=== PATIENT | female | born 1940 | race Caucasian/White ===

== ENCOUNTER 2018-04-28 17:33 | Inpatient (IN) | payer MEDICARE, OTHER ==
[~2018-04-28] VITALS: Ht 167.6 cm; Wt 51.3 kg
--- NOTE | ~2018-04-28 | MORECARE ---
CASE MANAGEMENT DISCHARGE SUMMARY PATIENT: DANAY WIGGINS UNIT: [id number] ADM DATE: 04/28/18 AGE: 77 : 39 SEX: F ROOM/BED: D.2215 AUTHOR: RENDOC PHYSICIAN: REFERRING PHYSICIAN: TAMELA TAVARES MD DATE OF SERVICE: 05/02/18 Discharge Plan Patient Name: DANAY WIGGINS Facility: [facility]:[place] : 1940 Planned Disposition: Inpatient Rehab Anticipated Discharge Date: Discharge Date: Expected LOS: Initial Reviewer: [email or web address] Initial Review Date: 04/28/2018 Generated: 05/02/18 4:12 pm Comments DCP- Discharge Planning Updated by [email or web address]: Vonnie Gerardo on 05/02/18 2:[address] Patient Name: DANAY WIGGINS Admission Status: Elective Accout number: [id number] Admission Date: 04-28-2018 : 1940 Admission Diagnosis: Attending: TAMELA TAVARES Current LOS: 4 Anticipated DC Date: Planned Disposition: Inpatient Rehab Primary Insurance: MEDICARE A & B Discharge Planning Comments: CM met with patient and son to assess discharge planning needs. Patient currently lives on the same property as her son but lives independently but needs the help for bathing and meds at times. Hardy (son) or Ami(daughter in law) She has a nebulizer and home o2 at home. I have sent the referral for [facility] via [facility]. Patient would like to go to inpatient rehab when discharged. CM will continue to follow and assist with DC planning as needed Salesforce Consultant: Vonnie Gerardo DCP- Discharge Planning Updated by [email or web address]: Vonnie Gerardo on 05/01/18 10:[address] referral for trilogy called to [place] with [facility]. DCPIA - Discharge Planning Initial Assessment Updated by [email or web address]: Vonnie Gerardo on 05/02/18 3:06 pm * Is the patient Alert and Oriented? Yes * How many steps to enter\exit or inside your home? * PCP Slovenian * [facility]acy [facility] in [place] * Preadmission Environment Home with Family * ADLs Partial Dependent * Partial ADLs (Assistance needed) Ambulation Bathing * Equipment Nebulizer Oxygen * List name and contact numbers for known caregivers / representatives who currently or will assist patient after discharge: Hardy (son) [phone] Ami (daughter in law) [phone] * Verbal permission to speak to the caregivers and representatives has been obtained from the patient. Yes * Community resources currently utilized None * Additional services required to return to the preadmission environment? No * Can the patient safely return to the preadmission environment? Yes * Has this patient been hospitalized within the prior 30 days at any hospital? No Last DP export: 05/02/18 2:04 Patient Name: DANAY WIGGINS Page [id number] at 1512 All edits/amendments must be made on the electronic document DICTATION DATE: 05/02/181511 FINANCIAL RETIREMENT PLAN SPECIALIST: KELLY 05/02/181511 RPT#: [id number] DC DATE: STATUS: ADM IN [facility] [address] [place] [address] END OF REPORT
--- NOTE | ~2018-04-28 | MORECARE ---
CASE MANAGEMENT DISCHARGE SUMMARY PATIENT: DANAY WIGGINS UNIT: [id number] ADM DATE: 04/28/18 AGE: 77 : 39 SEX: F ROOM/BED: D.2215 AUTHOR: JACINTO MCCLURE PHYSICIAN: REFERRING PHYSICIAN: TAMELA TAVARES MD DATE OF SERVICE: 05/02/18 Discharge Plan Patient Name: DANAY WIGGINS Facility: [facility]:[place] : 1940 Planned Disposition: Inpatient Rehab Anticipated Discharge Date: Discharge Date: Expected LOS: Initial Reviewer: [email or web address] Initial Review Date: 04/28/2018 Generated: 05/02/18 4:04 pm Comments DCP- Discharge Planning Updated by [email or web address]: Vonnie Gerardo on 05/01/18 10:[address] referral for trilogy called to [place] with [facility]. Patient Name: DANAY WIGGINS Page [id number] at 1504 All edits/amendments must be made on the electronic document DICTATION DATE: 05/02/18 1504 IMAGER: KELLY 05/02/18 1504 RPT#: [id number] DC DATE: STATUS: ADM IN [facility] [address] [place] [address] END OF REPORT
--- NOTE | ~2018-04-28 | MORECARE ---
CASE MANAGEMENT DISCHARGE SUMMARY PATIENT: DANAY WIGGINS UNIT: [id number] ADM DATE: 04/28/18 AGE: 77 : 39 SEX: F ROOM/BED: D.2215 AUTHOR: JACINTO MCCLURE PHYSICIAN: REFERRING PHYSICIAN: TAMELA TAVARES MD DATE OF SERVICE: 05/08/18 Discharge Plan Patient Name: DANAY WIGGINS Facility: [facility]:[place] : 1940 Planned Disposition: Inpatient Rehab Anticipated Discharge Date: Discharge Date: 05/04/2018 Expected LOS: 0 Initial Reviewer: [email or web address] Initial Review Date: 04/28/2018 Generated: 05/08/18 9:08 am Comments DCP- Discharge Planning Updated by [email or web address]: Vonnie Gerardo on 05/04/18 11:[address] PATIENT TO BE DISCHARGED TO INPATIENT TODAY, IMM EXPLAINED AND GIVEN. CM WILL CONTINUE TO FOLLOW AND ASSIST WITH DC PLANNING NEEDED DCP- Discharge Planning Updated by [email or web address]: Vonnie Gerardo on 05/03/18 11:[address] [facility] CALLED TO LET ME KNOW THAT THE TRILOLGY IS APPROVED 100%. I EXPLAINED TO HER THAT SHE WILL BE DISCHARGING TO INPATIENT REHAB BEFORE GOING HOME. THEY STATED THAT THEY WILL FOLLOW HER AND WILL NEED A 48 HOUR NOTICE BEFORE DC SO SHE CAN GET THE PATIENT SET UP HERE IN THE HOSPITAL BEFORE DISCHARGE. KATHIE ARMSTRONG WITH [facility] NUMBER IS [phone] DCP- Discharge Planning Updated by [email or web address]: Vonnie Gerardo on 05/02/18 2:[address] Patient Name: DANAY WIGGINS Admission Status: Elective Accout number: [id number] Admission Date: 04-28-2018 : 1940 Admission Diagnosis: Attending: TAMELA TAVARES Current LOS: 4 Anticipated DC Date: Planned Disposition: Inpatient Rehab Primary Insurance: MEDICARE A & B Discharge Planning Comments: CM met with patient and son to assess discharge planning needs. Patient currently lives on the same property as her son but lives independently but needs the help for bathing and meds at times. Hardy (son) or Ami(daughter in law) She has a nebulizer and home o2 at home. I have sent the referral for [facility] via [facility]. Patient would like to go to inpatient rehab when discharged. CM will continue to follow and assist with DC planning as needed Paperback Machine Operator: Vonnie Gerardo DCP- Discharge Planning Updated by [email or web address]: Vonnie Gerardo on 05/01/18 10:[address] referral for trilogy called to [place] with [facility]. DCPIA - Discharge Planning Initial Assessment Updated by [email or web address]: Vonnie Gerardo on 05/02/18 3:06 pm * Is the patient Alert and Oriented? Yes * How many steps to enter\exit or inside your home? * PCP Bolivian * Pharmacy [facility] in [place] * Preadmission Environment Home with Family * ADLs Partial Dependent * Partial ADLs (Assistance needed) Ambulation Bathing * Equipment Nebulizer Oxygen * List name and contact numbers for known caregivers / representatives who currently or will assist patient after discharge: Hardy (son) [phone] Ami (daughter in law) [phone] * Verbal permission to speak to the caregivers and representatives has been obtained from the patient. Yes * Community resources currently utilized None * Additional services required to return to the preadmission environment? No * Can the patient safely return to the preadmission environment? Yes * Has this patient been hospitalized within the prior 30 days at any hospital? No Coverage Notice Reviewer: [email or web address] [place] Notice Issued Date-Time: 05/04/2018 12:08 Notice Type: IM Discharge Notice Notice Delivered To: Patient Relationship to Patient: Self Cattle Producers Name: Delivery Method: HAND - Hand Delivered Christin Days: Prior Verbal Notification: Recipient Understood Notice: Yes Recipient Signature: Yes Med Rec Note Co-signed by Attending: Coverage Notice Comment: Last DP export: 05/04/18 11:07 Patient Name: DANAY WIGGINS Page [id number] at 0808 All edits/amendments must be made on the electronic document DICTATION DATE: 05/08/18807 DRYWALL APPLICATOR: KELLY 05/08/18807 RPT#: [id number] DC DATE:05/04/18 STATUS: DIS IN [facility] [address] [place] [address] END OF REPORT
--- NOTE | ~2018-04-28 | MORECARE ---
CASE MANAGEMENT DISCHARGE SUMMARY PATIENT: DANAY WIGGINS UNIT: [id number] ADM DATE: 04/28/18 AGE: 77 : 39 SEX: F ROOM/BED: D.2215 AUTHOR: JACINTO MCCLURE PHYSICIAN: REFERRING PHYSICIAN: TAMELA TAVARES MD DATE OF SERVICE: 05/04/18 Discharge Plan Patient Name: DANAY WIGGINS Facility: [facility]:[place] : 1940 Planned Disposition: Inpatient Rehab Anticipated Discharge Date: Discharge Date: Expected LOS: Initial Reviewer: [email or web address] Initial Review Date: 04/28/2018 Generated: 05/04/18 1:07 pm Comments DCP- Discharge Planning Updated by [email or web address]: Vonnie Gerardo on 05/04/18 11:[address] PATIENT TO BE DISCHARGED TO INPATIENT TODAY, IMM EXPLAINED AND GIVEN. CM WILL CONTINUE TO FOLLOW AND ASSIST WITH DC PLANNING NEEDED DCP- Discharge Planning Updated by [email or web address]: Vonnei Gerardo on 05/03/18 11:[address] [facility] CALLED TO LET ME KNOW THAT THE TRILOLGY IS APPROVED 100%. I EXPLAINED TO HER THAT SHE WILL BE DISCHARGING TO INPATIENT REHAB BEFORE GOING HOME. THEY STATED THAT THEY WILL FOLLOW HER AND WILL NEED A 48 HOUR NOTICE BEFORE DC SO SHE CAN GET THE PATIENT SET UP HERE IN THE HOSPITAL BEFORE DISCHARGE. KATHIE ARMSTRONG WITH [facility] NUMBER IS [phone] DCP- Discharge Planning Updated by [email or web address]: Vonnie Gerardo on 05/02/18 2:[address] Patient Name: DANAY WIGGINS Admission Status: Elective Accout number: [id number] Admission Date: 04-28-2018 : 1940 Admission Diagnosis: Attending: TAMELA TAVARES Current LOS: 4 Anticipated DC Date: Planned Disposition: Inpatient Rehab Primary Insurance: MEDICARE A & B Discharge Planning Comments: CM met with patient and son to assess discharge planning needs. Patient currently lives on the same property as her son but lives independently but needs the help for bathing and meds at times. Hardy (son) or Ami(daughter in law) She has a nebulizer and home o2 at home. I have sent the referral for [facility] via [facility]. Patient would like to go to inpatient rehab when discharged. CM will continue to follow and assist with DC planning as needed Parts Technician: Vonnie Gerardo DCP- Discharge Planning Updated by [email or web address]: Vonnie Gerardo on 05/01/18 10:[address] referral for trilogy called to [place] with [facility]. DCPIA - Discharge Planning Initial Assessment Updated by [email or web address]: Vonnie Gerardo on 05/02/18 3:06 pm * Is the patient Alert and Oriented? Yes * How many steps to enter\exit or inside your home? * PCP Frisian * [facility] in [place] * Preadmission Environment Home with Family * ADLs Partial Dependent * Partial ADLs (Assistance needed) Ambulation Bathing * Equipment Nebulizer Oxygen * List name and contact numbers for known caregivers / representatives who currently or will assist patient after discharge: Hardy (son) [phone] Ami (daughter in law) [phone] * Verbal permission to speak to the caregivers and representatives has been obtained from the patient. Yes * Community resources currently utilized None * Additional services required to return to the preadmission environment? No * Can the patient safely return to the preadmission environment? Yes * Has this patient been hospitalized within the prior 30 days at any hospital? No Last DP export: 05/04/18 11:01 Patient Name: DANAY WIGGINS Page [phone] at 1208 All edits/amendments must be made on the electronic document DICTATION DATE: 05/04/181206 CONTRACT PROJECT MANAGER: KELLY 05/04/181206 RPT#: [id number] DC DATE: STATUS: ADM IN [facility] [address] [place] [address] END OF REPORT
--- NOTE | ~2018-04-28 | MORECARE ---
CASE MANAGEMENT DISCHARGE SUMMARY PATIENT: DANAY WIGGINS UNIT: [id number] ADM DATE: 04/28/18 AGE: 77 : 39 SEX: F ROOM/BED: D.3175 AUTHOR: JACINTO MCCLURE PHYSICIAN: REFERRING PHYSICIAN: TAMELA TAVARES MD DATE OF SERVICE: 05/04/18 Discharge Plan Patient Name: DANAY WIGGINS Facility: [facility]:[place] : 1940 Planned Disposition: Inpatient Rehab Anticipated Discharge Date: Discharge Date: Expected LOS: Initial Reviewer: [email or web address] Initial Review Date: 04/28/2018 Generated: 05/04/18 1:00 pm Comments DCP- Discharge Planning Updated by [email or web address]: Vonnie Gerardo on 05/03/18 11:[address] [facility] CALLED TO LET ME KNOW THAT THE TRILOLGY IS APPROVED 100%. I EXPLAINED TO HER THAT SHE WILL BE DISCHARGING TO INPATIENT REHAB BEFORE GOING HOME. THEY STATED THAT THEY WILL FOLLOW HER AND WILL NEED A 48 HOUR NOTICE BEFORE DC SO SHE CAN GET THE PATIENT SET UP HERE IN THE HOSPITAL BEFORE DISCHARGE. KYLIE ARMSTRONG WITH [facility] NUMBER IS [phone] DCP- Discharge Planning Updated by [email or web address]: Vonnie Gerardo on 05/02/18 2:[address] Patient Name: DANAY WIGGINS Admission Status: Elective Accout number: [id number] Admission Date: 04-28-2018 : 1940 Admission Diagnosis: Attending: TAMELA TAVARES Current LOS: 4 Anticipated DC Date: Planned Disposition: Inpatient Rehab Primary Insurance: MEDICARE A & B Discharge Planning Comments: CM met with patient and son to assess discharge planning needs. Patient currently lives on the same property as her son but lives independently but needs the help for bathing and meds at times. Hardy (son) or Ami(daughter in law) She has a nebulizer and home o2 at home. I have sent the referral for [facility] via [facility]. Patient would like to go to inpatient rehab when discharged. CM will continue to follow and assist with DC planning as needed Labor Relations Supervisor: Vonnie Gerardo DCP- Discharge Planning Updated by [email or web address]: Vonnie Gerardo on 05/01/18 10:[address] referral for trilogy called to [place] with [facility] DCPIA - Discharge Planning Initial Assessment Updated by [email or web address]: Vonnie Gerardo on 05/02/18 3:06 pm * Is the patient Alert and Oriented? Yes * How many steps to enter\exit or inside your home? * PCP Georgian * [facility] in [place] * Preadmission Environment Home with Family * ADLs Partial Dependent * Partial ADLs (Assistance needed) Ambulation Bathing * Equipment Nebulizer Oxygen * List name and contact numbers for known caregivers / representatives who currently or will assist patient after discharge: Hardy (son) [phone] Ami (daughter in law) [phone] * Verbal permission to speak to the caregivers and representatives has been obtained from the patient. Yes * Community resources currently utilized None * Additional services required to return to the preadmission environment? No * Can the patient safely return to the preadmission environment? Yes * Has this patient been hospitalized within the prior 30 days at any hospital? No Last DP export: 05/03/18 11:47 Patient Name: DANAY WIGGINS Page 11743 at 1201 All edits/amendments must be made on the electronic document DICTATION DATE: 05/04/181199 TOOL MARKER: KELLY 05/04/18 1200 RPT#: [id number] DC DATE: STATUS: ADM IN [facility] [address] [place] [address] END OF REPORT
--- NOTE | ~2018-04-28 | HP ---
PATIENT: DANAY WIGGINS MEDICAL RECORD: [id number] ACCOUNT: [id number] LOCATION:D.[facility] [address] : [birth year] ADMISSION DATE: 04/28/18 PCP: TAMELA TAVARES MD HISTORY AND PHYSICAL EXAMINATION REASON FOR ADMISSION: Confusion, shortness of breath, and failure to thrive. HISTORY OF PRESENT ILLNESS: The patient is a 77-year-old female with long-standing history of O2 dependent COPD. The patient has been cared for by her son for the last several years. She has been progressively declining chronic weight loss, poor appetite, and increasing shortness of breath. She considered hospice last year, but would not let me take care of her medically. He states that 2 days ago, she became very confused. She thought an airplane entered the house among other things. She has had little p.o. intake for the last 2-3 days. She is having increasing cough and shortness of breath, but no fever. Her son is concerned she might have had a stroke. She had no motor deficits, but is minimally ambulatory and mainly sits in a wheelchair on 3 liters of oxygen most of the time. Denies headache currently. PAST MEDICAL HISTORY: Severe O2 dependent COPD, iron deficiency anemia, chronic lymphedema, failure to thrive, weight loss, essential hypertension, osteoporosis, osteoarthritis, nicotine addiction. HOME MEDICATIONS: Lasix 20 mg p.o. b.i.d., lisinopril 20 mg p.o. daily, potassium chloride 10 mEq b.i.d., Symbicort 160/4.5 one puff b.i.d., DuoNeb updrafts q.i.d., ferrous sulfate 324 mg a day, alprazolam 0.25 b.i.d. p.r.n. anxiety, prednisone 5 mg daily. ALLERGIES: LEVAQUIN AND CELEBREX. SOCIAL HISTORY: She smoked for multiple years, greater than 26-gepc-ygta history, and quit about 3 years ago. She is since 2013. She lives with her son and his daughter and they try valiantly to care for her. FAMILY HISTORY: Parents are , had cardiovascular disease and COPD. REVIEW OF SYSTEMS: CONSTITUTIONAL: She has had consistent slow gradual weight loss due to poor appetite. The patient weighed 120 pounds a year ago and now weighs 113. Denies fever. HEENT: No recent visual change, sinus congestion, or sore throat. She has chronic hearing difficulty. RESPIRATORY: Chronic rest and exertional shortness of breath. She has sputum production in the mornings that is foamy about a cup full. She has not had any hemoptysis. She is more short of breath now, increased her oxygen from 2-1/2 to 3 liters. CARDIAC: No history of chest pain, PND, orthopnea, claudication or angina. GASTROINTESTINAL: No nausea, vomiting stents, change in stools or blood per rectum. Has poor appetite. GENITOURINARY: Has mild stress incontinence. No dysuria. GYNECOLOGIC: No vaginal bleeding. ENDOCRINE: Denies polyuria, polydipsia, heat or cold intolerance. NEUROLOGIC: Denies history of stroke. Says she was confused over the last 2 days. Denies motor deficit. She has chronic weakness. Denies headaches or history of seizures. HISTORY AND PHYSICAL [id number] FELICIANODANAY Derrick INTEGUMENT: No rash or itching. PSYCHIATRIC: Denies depressed mood. PHYSICAL EXAMINATION: VITAL SIGNS: Temperature 99 degrees Fahrenheit orally, blood pressure 122/40. Weight 113 pounds, height 66 inches, BMI is 18.2, heart rate is 90 and regular, and O2 sat is 92% on 3 liters. GENERAL: The patient is disheveled appearing and cachectic, but awake. HEENT: Normocephalic. Eyes show senile cataracts, OU. Oropharynx has dry mucous membranes. NECK: Supple, without bruits. CHEST: Decreased breath sounds bilaterally without wheeze. She is mildly tachypneic. She has increased AP diameter. HEART: Tachycardic without murmur. BREASTS: Symmetrical. ABDOMEN: Soft and nontender. GENITOURINARY: Deferred. EXTREMITIES: She has diffuse muscle wasting in upper and lower extremities. She has 2+ bipedal edema. NEUROLOGICAL: She is oriented to person and place, but not time. Cannot subtract serial sevens. Motor shows generalized weakness, but no obvious motor deficits or sensory deficits. Gait is not testable due to weakness. LABORATORY DATA: Showed a white count of 11,000, hemoglobin 9.8. Potassium of 5.6, BUN of 34, creatinine of 1.6. Hepatic panel is pending. ASSESSMENT: 1. Intravascular volume depletion. 2. Hyperkalemia. 3. Failure to thrive. 4. Severe O2 dependent COPD. 5. Altered mental status, possible CVA. 6. Nicotine addiction. 7. Hypertension. PLAN: The patient will hold antihypertensives. We will hydrate tonight. Check lab database. CT of the brain without contrast, empiric Rocephin 1 g IV piggyback q.24 hours with updrafts. DNR per her son's request. TRANSINT:[id number] Voice Confirmation ID: [id number] DOCUMENT ID: [id number] TAMELA TAVARES MD at 1644 CC: [id number] DICTATION DATE: 04/28/18 171 GUEST SERVICES DIRECTOR: 04/28/18 1900 ADM IN [place] [place] [address] [place] [address]
--- NOTE | ~2018-04-28 | MORECARE ---
CASE MANAGEMENT DISCHARGE SUMMARY PATIENT: DANAY WIGGINS UNIT: [id number] ADM DATE: 04/28/18 AGE: 77 : 39 SEX: F ROOM/BED: D.7025 AUTHOR: JACINTO MCCLURE PHYSICIAN: REFERRING PHYSICIAN: TAMELA TAVARES MD DATE OF SERVICE: 05/03/18 Discharge Plan Patient Name: DANAY WIGGINS Facility: [facility]:[place] : 1940 Planned Disposition: Inpatient Rehab Anticipated Discharge Date: Discharge Date: Expected LOS: Initial Reviewer: [email or web address] Initial Review Date: 04/28/2018 Generated: 05/03/18 1:47 pm Comments DCP- Discharge Planning Updated by [email or web address]: Vonnie Gerardo on 05/03/18 11:[address] [facility] CALLED TO LET ME KNOW THAT THE TRILOLGY IS APPROVED 100%. I EXPLAINED TO HER THAT SHE WILL BE DISCHARGING TO INPATIENT REHAB BEFORE GOING HOME. THEY STATED THAT THEY WILL FOLLOW HER AND WILL NEED A 48 HOUR NOTICE BEFORE DC SO SHE CAN GET THE PATIENT SET UP HERE IN THE HOSPITAL BEFORE DISCHARGE. KYLIE ARMSTRONG WITH [facility] NUMBER IS [phone] DCP- Discharge Planning Updated by [email or web address]: Vonnie Gerardo on 05/02/18 2:[address] Patient Name: DANAY WIGGINS Admission Status: Elective Accout number: [id number] Admission Date: 04-28-2018 : 1940 Admission Diagnosis: Attending: TAMELA TAVARES Current LOS: 4 Anticipated DC Date: Planned Disposition: Inpatient Rehab Primary Insurance: MEDICARE A & B Discharge Planning Comments: CM met with patient and son to assess discharge planning needs. Patient currently lives on the same property as her son but lives independently but needs the help for bathing and meds at times. Hardy (son) or Ami(daughter in law) She has a nebulizer and home o2 at home. I have sent the referral for [facility] via [facility]. Patient would like to go to inpatient rehab when discharged. CM will continue to follow and assist with DC planning as needed Brand Protection Manager: Vonnie Gerardo DCP- Discharge Planning Updated by [email or web address]: Vonnie Gerardo on 05/01/18 10:[address] referral for trilogy called to [place] with [facility] DCPIA - Discharge Planning Initial Assessment Updated by [email or web address]: Vonnie Gerardo on 05/02/18 3:06 pm * Is the patient Alert and Oriented? Yes * How many steps to enter\exit or inside your home? * PCP Yak[place] * [facility] in [place] * Preadmission Environment Home with Family * ADLs Partial Dependent * Partial ADLs (Assistance needed) Ambulation Bathing * Equipment Nebulizer Oxygen * List name and contact numbers for known caregivers / representatives who currently or will assist patient after discharge: Hardy (son) [phone] Ami (daughter in law) [phone] * Verbal permission to speak to the caregivers and representatives has been obtained from the patient. Yes * Community resources currently utilized None * Additional services required to return to the preadmission environment? No * Can the patient safely return to the preadmission environment? Yes * Has this patient been hospitalized within the prior 30 days at any hospital? No Last DP export: 05/02/18 2:12 Patient Name: DANAY WIGGINS Page 15765 at 1247 All edits/amendments must be made on the electronic document DICTATION DATE: 05/03/181246 MOTOR VEHICLE OPERATOR ROAD SUPERVISOR: KELLY 05/03/181246 RPT#: [id number] DC DATE: STATUS: ADM IN [facility] [address] [place] [address] END OF REPORT
[~2018-04-28 17:33] MED LIST: BAYER CHEWABLE81 MG PO; BP MED; CALCIUM 500 +1 EAC3 PO; K-DUR20 MEQ PO; LASIX; SYMBICORT
[2018-04-28 18:28] LABS: BASOPHILS 0.1 % (0-2); EOSINOPHILS 0 % (0-7); HEMATOCRIT 31.6 % (36.0-48.0); HEMOGLOBIN 9.3 g/dL (12-16); IMMATURE GRANULOCYTES 0.3 % (0-5); LYMPHOCYTES 9.3 % (15-50); MCH 29.7 pg (26.0-34.0); MCHC 29.4 g/dL (31.0-37.0); MEAN PLATELET VOLUME 9.9 fL (7.4-10.4); MONOCYTES 8.5 % (2-11); NEUTROPHILS 81.8 % (40-80); PLATELET COUNT 418 10x3/uL (130-400); RBC 3.13 10x6/uL (4.00-5.40); RDW 13.8 % (11.5-14.5); WBC 11.3 10x3/uL (4.8-10.8)
[2018-04-28 19:10] LABS: ALBUMIN 3.4 g/dL (3.4-5.0); BILIRUBIN - DIRECT 0.06 mg/dL (0.00-0.30); BILIRUBIN - INDIRECT 0.14 mg/dL (0.00-1.00); BILIRUBIN - TOTAL 0.2 mg/dL (0.2-1.3); CALCIUM 10.7 mg/dL (8.5-10.1); CREATININE - SERUM 1.4 mg/dL (0.6-1.3); PROTEIN - SERUM 7.1 g/dL (6.4-8.2)
[2018-04-28 19:26] LABS: ANION GAP 5.9 mmol/L (8-16); CARBON DIOXIDE 43.2 mmol/L (21.0-32.0); POTASSIUM - SERUM 6.1 mmol/L (3.5-5.1)
[2018-04-28 20:00] VITALS: BP 100/50
[2018-04-28 22:44] VITALS: BP 100/50; BMI 18.2
[2018-04-29] VITALS (10 sets, daily range): BP systolic 89–111; BP diastolic 39–63; BMI 18.2
[2018-04-29 05:10] LABS: BASOPHILS 0.1 % (0-2); EOSINOPHILS 0.3 % (0-7); HEMATOCRIT 25.6 % (36.0-48.0); HEMOGLOBIN 7.7 g/dL (12-16); IMMATURE GRANULOCYTES 0.1 % (0-5); LYMPHOCYTES 20.8 % (15-50); MCH 29.6 pg (26.0-34.0); MCHC 30.1 g/dL (31.0-37.0); MEAN PLATELET VOLUME 9.9 fL (7.4-10.4); MONOCYTES 17.8 % (2-11); NEUTROPHILS 60.9 % (40-80); PLATELET COUNT 367 10x3/uL (130-400); RDW 13.9 % (11.5-14.5)
[2018-04-29 05:11] LABS: MCV 98.5 fL (80.0-100.0)
[2018-04-29 05:33] LABS: ALBUMIN 2.6 g/dL (3.4-5.0); CALCIUM 9.1 mg/dL (8.5-10.1); CREATININE - SERUM 1.3 mg/dL (0.6-1.3)
[2018-04-29 05:41] LABS: POTASSIUM - SERUM 4.9 mmol/L (3.5-5.1)
[2018-04-29 05:42] LABS: ANION GAP 4.3 mmol/L (8-16); BILIRUBIN - TOTAL 0.1 mg/dL (0.2-1.3); CARBON DIOXIDE 42.6 mmol/L (21.0-32.0)
[2018-04-29 18:58] LABS: APPEARANCE CLEAR (CLEAR); BILIRUBIN NEGATIVE (NEGATIVE); COLOR YELLOW (YELLOW); GLUCOSE 50 mg/dL (NEGATIVE); KETONE NEGATIVE (NEGATIVE); NITRITE NEGATIVE (NEGATIVE); PROTEIN NEGATIVE (NEGATIVE); UROBILINOGEN NORMAL (NORMAL); WHITE CELLS - URINE NSEEN /hpf (0-5)
[2018-04-29 18:59] LABS: BACTERIA NONE SEEN /hpf (NONE SEEN); EPITHELIAL CELLS NSEEN /hpf (0-5)
[2018-04-30] VITALS: BP 104/52
[2018-04-30 04:00] VITALS: BP 138/88
[2018-04-30 05:25] LABS: BASOPHILS 0 % (0-2); EOSINOPHILS 0 % (0-7); HEMATOCRIT 28.7 % (36.0-48.0); IMMATURE GRANULOCYTES 0.2 % (0-5); LYMPHOCYTES 12.6 % (15-50); MCH 29.3 pg (26.0-34.0); MCHC 31.4 g/dL (31.0-37.0); MONOCYTES 6.4 % (2-11); NEUTROPHILS 80.8 % (40-80); PLATELET COUNT 378 10x3/uL (130-400); RBC 3.07 10x6/uL (4.00-5.40); RDW 14.9 % (11.5-14.5); WBC 9.6 10x3/uL (4.8-10.8)
[2018-04-30 05:27] LABS: MCV 93.5 fL (80.0-100.0)
[2018-04-30 06:10] LABS: ANION GAP 8.1 mmol/L (8-16); CALCIUM 9.2 mg/dL (8.5-10.1); CARBON DIOXIDE 38.6 mmol/L (21.0-32.0); CREATININE - SERUM 1.5 mg/dL (0.6-1.3); POTASSIUM - SERUM 4.7 mmol/L (3.5-5.1)
[2018-04-30 08:27] VITALS: BP 134/59
[2018-04-30 16:49] VITALS: BP 119/49
[2018-04-30 20:00] VITALS: BP 120/60
[2018-05-01] VITALS: BP 128/59
[2018-05-01 04:00] VITALS: BP 124/46
[2018-05-01 08:03] VITALS: BP 104/55
[2018-05-01 08:48] LABS: % SATURATION 88 % (15-55); IRON 228 ug/dl (35-150); TOTAL IRON BIND CAPACITY 259 ug/dl (260-445); UNSAT IRON BIND CAPACITY 31 ug/dl (150-375)
[2018-05-01 08:54] LABS: HEMATOCRIT 26.9 % (36.0-48.0); HEMOGLOBIN 8.7 g/dL (12-16); LYMPHOCYTES 8.1 % (15-50); MCH 30.5 pg (26.0-34.0); MCHC 32.3 g/dL (31.0-37.0); MCV 94.4 fL (80.0-100.0); MEAN PLATELET VOLUME 9.8 fL (7.4-10.4); NEUTROPHILS 81.6 % (40-80); PLATELET COUNT 392 10x3/uL (130-400); RBC 2.85 10x6/uL (4.00-5.40); RDW 14.4 % (11.5-14.5); WBC 11.4 10x3/uL (4.8-10.8)
[2018-05-01 09:01] LABS: FERRITIN 172 ng/mL (3-244); LDH 147 U/L (81-234)
[2018-05-01 13:05] VITALS: BP 105/48
[2018-05-01 16:25] VITALS: BP 117/54
[2018-05-01 20:18] VITALS: BP 101/48
[2018-05-02 04:11] VITALS: BP 124/54
[2018-05-02 05:48] LABS: BASOPHILS 0.1 % (0-2); EOSINOPHILS 0 % (0-7); HEMATOCRIT 26.4 % (36.0-48.0); HEMOGLOBIN 8.2 g/dL (12-16); IMMATURE GRANULOCYTES 1.8 % (0-5); LYMPHOCYTES 6.1 % (15-50); MCH 29.2 pg (26.0-34.0); MCHC 31.1 g/dL (31.0-37.0); MEAN PLATELET VOLUME 10.2 fL (7.4-10.4); MONOCYTES 9.4 % (2-11); NEUTROPHILS 82.6 % (40-80); PLATELET COUNT 412 10x3/uL (130-400); RBC 2.81 10x6/uL (4.00-5.40); RDW 15.2 % (11.5-14.5); WBC 13.7 10x3/uL (4.8-10.8)
[2018-05-02 06:12] LABS: ANION GAP 10.5 mmol/L (8-16); CARBON DIOXIDE 31.2 mmol/L (21.0-32.0); CREATININE - SERUM 1.4 mg/dL (0.6-1.3)
[2018-05-02 06:13] LABS: POTASSIUM - SERUM 3.7 mmol/L (3.5-5.1)
[2018-05-02 08:33] VITALS: BP 112/58
[2018-05-02 10:21] LABS: FOLATE (FOLIC ACID) - SERUM 15.7 ng/mL (>3.0)
[2018-05-02 11:55] VITALS: BP 104/50
[2018-05-02 16:41] VITALS: BP 119/59
[2018-05-02 17:12] LABS: SPE - ALBUMIN 2.7 g/dL (2.9-4.4); SPE - ALPHA-1 GLOBULIN 0.2 g/dL (0.0-0.4); SPE - BETA GLOBULIN 0.8 g/dL (0.7-1.3); SPE - GAMMA GLOBULIN 0.8 g/dL (0.4-1.8); SPE - M-SPIKE Not Observed g/dL (Not Observed); SPE - TOTAL PROTEIN 5.5 g/dL (6.0-8.5)
[2018-05-02 20:16] VITALS: BP 112/60
[2018-05-03 03:31] VITALS: BP 133/67
[2018-05-03 05:27] LABS: BASOPHILS 0.1 % (0-2); EOSINOPHILS 0 % (0-7); HEMATOCRIT 27.5 % (36.0-48.0); HEMOGLOBIN 8.5 g/dL (12-16); IMMATURE GRANULOCYTES 2.9 % (0-5); LYMPHOCYTES 12.8 % (15-50); MCH 29.1 pg (26.0-34.0); MCHC 30.9 g/dL (31.0-37.0); MCV 94.2 fL (80.0-100.0); MEAN PLATELET VOLUME 10.3 fL (7.4-10.4); MONOCYTES 18.1 % (2-11); NEUTROPHILS 66.1 % (40-80); PLATELET COUNT 429 10x3/uL (130-400); RBC 2.92 10x6/uL (4.00-5.40); RDW 15.6 % (11.5-14.5); WBC 14.5 10x3/uL (4.8-10.8)
[2018-05-03 05:37] LABS: ANION GAP 8.6 mmol/L (8-16); CALCIUM 8.4 mg/dL (8.5-10.1); CARBON DIOXIDE 30.5 mmol/L (21.0-32.0); CREATININE - SERUM 1.3 mg/dL (0.6-1.3); POTASSIUM - SERUM 4.1 mmol/L (3.5-5.1)
[2018-05-03 08:42] VITALS: BP 124/63
[2018-05-03 13:03] VITALS: BP 117/54
[2018-05-03 15:45] VITALS: BP 123/55
[2018-05-03 15:50] VITALS: Ht 167.6 cm; Wt 51.3 kg
[2018-05-03 21:24] VITALS: BP 106/50
[2018-05-04 00:36] VITALS: BP 115/59
[2018-05-04 05:19] VITALS: BP 110/55
[2018-05-04] MEDS ORDERED: BENADRYL25 MG PO (07:12)
[2018-05-04] MEDS ORDERED: IPRAT-ALBUT 0.5-3 ML UPD (07:12)
[2018-05-04] MEDS ORDERED: VIBRAMYCIN 100100 MG PO (07:12)
[2018-05-04] MEDS ORDERED: BROVANA15 MCG/2 M INH (07:12)
[2018-05-04] MEDS ORDERED: LISINOPRIL10 MG PO (07:13)
[2018-05-04] MEDS ORDERED: MUCINEX600 MG PO (07:13)
[2018-05-04] MEDS ORDERED: PULMICORT0.5 MG/21 UPD (07:13)
[2018-05-04] MEDS ORDERED: ACETAMINOPHEN325 MG PO (07:13)
[2018-05-04] MEDS ORDERED: ONDANSETRON4 MG/2 M3 IV (07:13)
[2018-05-04] MEDS ORDERED: PREDNISONE20 MG PO (07:14)
[2018-05-04] MEDS ORDERED: FUROSEMIDE20 MG PO (07:16)
[2018-05-04] MEDS ORDERED: FERROUS SULFAT325 MG PO (07:17)
[2018-05-04 09:16] VITALS: BP 116/51
[2018-05-04 12:49] VITALS: BP 104/49
== END 2018-05-04 14:28 | DRG 189 ==
LOC: D.SDCHOLD 17:33 → D.MS 17:33
PROVIDERS: Family Medicine; Internal Medicine Hematology & Oncology
DX: J96.21 Acute and chronic respiratory failure with hypoxia (principal); J44.1 Chronic obstructive pulmonary disease with (acute) exacerbation; J44.0 Chronic obstructive pulmonary disease with (acute) lower respiratory infection; Z68.1 Body mass index [BMI] 19.9 or less, adult; R64 Cachexia; J96.22 Acute and chronic respiratory failure with hypercapnia; J20.9 Acute bronchitis, unspecified; Z66 Do not resuscitate; R62.7 Adult failure to thrive; Z99.81 Dependence on supplemental oxygen; R63.0 Anorexia; R53.1 Weakness; M81.0 Age-related osteoporosis without current pathological fracture; M19.90 Unspecified osteoarthritis, unspecified site; I89.0 Lymphedema, not elsewhere classified; F03.90 Unspecified dementia, unspecified severity, without behavioral disturbance, psychotic disturbance, mood disturbance, and anxiety; E87.5 Hyperkalemia; E86.0 Dehydration; D63.8 Anemia in other chronic diseases classified elsewhere; I95.9 Hypotension, unspecified; I10 Essential (primary) hypertension; F17.200 Nicotine dependence, unspecified, uncomplicated

== ENCOUNTER 2018-05-04 15:55 | Inpatient (IN) | payer MEDICARE, OTHER ==
[~2018-05-04] VITALS: Ht 167.6 cm; Wt 47.6 kg
--- NOTE | ~2018-05-04 | RHP ---
PATIENT: DANAY WIGGINS MEDICAL RECORD: [id number] ACCOUNT: [id number] LOCATION:[facility] : 39 ADMISSION DATE: 05/04/18 REHABILITATION HISTORY AND PHYSICAL EXAMINATION POST ADMISSION PHYSICIAN EXAMINATION DATE OF ADMISSION: 05/04/2018 ADMITTING DIAGNOSIS: Acute exacerbation with myopathy. HISTORY OF PRESENT ILLNESS: The patient was admitted to the inpatient rehab with COPD. She is a 77-year-old female patient who was admitted to the acute hospital from her PCP's office with confusion, hypoxia, shortness of breath, and failure to thrive, had a longstanding history of O2 dependent COPD. She was placed on BiPAP, started on IV Rocephin. She had been seen and followed by pulmonary for increased breathing difficulties and by oncology for anemia. She is improving with her IV antibiotic therapy, IV steroids, and IV iron. She got a positive stool guaiac and is going to be seen by GI on an outpatient basis due to that, she is too weak right now to tolerate an EGD or colonoscopy. She had been progressively declining with chronic weight loss, poor appetite, and increasing shortness of breath. She has got a history of hypertension, severe COPD. She requires 3 liters via nasal cannula; iron deficient anemia; chronic lymphedema is also noted, but improved; osteoporosis; history of tobacco use; and osteoarthritis. Her admit ABG showed a pH of 7.39, pCO2 of 83, a pO2 of 83, and a sat of 95% on 3 liters. Chest x-ray showed mild prominence of her pulmonary vasculature with increased interstitial markings in both lungs. She has some blunting of her costophrenic angles. On 04/29/2018, she received a blood transfusion secondary to H&H of 7.5 and 25.6. She is slowly progressing with therapy. She lives alone with her son, living close to her. She is receiving IV iron. Continues to be on BiPAP as needed. She continues with dyspnea, increasing weakness, impaired mobility, and self-care deficit. These are all barriers to her going discharge to home at this time. She was moderately independent to independent with ADLs and moderately independent to independent with mobility. She does not use an assisting device within her home, but uses a wheelchair outside her home. She is currently set up for mod assist with her ADLs and mod assist to max assist for mobility. She and her son plan for her to return home at her prior level of function or possibly better after leaving the rehabilitation. COMORBIDITIES: Include xydey-ur-snsjavq respiratory failure and hypoxia and hypercapnia, hypertension, intravascular volume depletion, anemia, hyperkalemia, failure to thrive, nicotine addiction, hypertension, severe COPD, acute mental status changes, iron deficient anemia, weight loss, chronic lower extremity lymphedema, tobacco dependence, and debility. PAST MEDICAL HISTORY: Significant for severe O2 dependent COPD, iron deficient anemia, chronic lymphedema, failure to thrive, weight loss, essential hypertension, osteoporosis, osteoarthritis, and nicotine addiction. PAST SURGICAL HISTORY: Includes cataract surgery. ALLERGIES: LEVAQUIN AND CELEBREX. CURRENT MEDICATIONS: Include Floranex daily, she is on a tapering dose of Deltasone or prednisone, Zestril 10 mg daily, furosemide 20 mg daily, ferrous HISTORY AND PHYSICAL [id number] FELICIANOADNAY L sulfate 325 mg daily, aspirin 81 mg daily, Zofran 4 mg q.4 hours p.r.n. nausea and vomiting, she is on DuoNeb updrafts as needed for shortness of breath, Mucinex D 1 tab b.i.d., Vibramycin 100 mg b.i.d., diphenhydramine 25 mg q.4 hours p.r.n., Os-Waldo D 500 mg b.i.d., Pulmicort 0.5 mg b.i.d., Brovana 15 mcg b.i.d., and Tylenol 325 mg q.4 hours p.r.n. HABITS: She does have a history of tobacco use. FAMILY HISTORY: Noncontributory. SOCIAL HISTORY: The patient hopes to return back home and get back to her prior level of functioning. Does have a son that lives nearby and feels like that he will help with her. REVIEW OF SYSTEMS: GENERAL: Does complain of weakness and fatigue. HEENT: Does complain of cold, cough, and congestion. CARDIOVASCULAR: Denies any chest pain. LUNGS: Does complain of shortness of breath especially with ambulation. PHYSICAL EXAMINATION: VITAL SIGNS: Stable. She is afebrile. GENERAL: A very thin female, in no acute distress, alert upon exam. HEENT: Normocephalic and atraumatic. Mucosa moist. NECK: Supple. No lymphadenopathy. LUNGS: Decreased breath sounds bilaterally. No wheeze, rhonchi, or rales. HEART: Regular rate and rhythm. No murmurs, rubs or gallops, but she is noted to be tachycardic. ABDOMEN: Benign, nontender, nondistended. Positive bowel sounds times 4. EXTREMITIES: Does not have any clubbing, cyanosis, or edema. Does have some changes consistent with peripheral vascular disease. NEUROLOGIC: She does have noted weakness. LABORATORY DATA: White count 16,000. Her H&H are noted to be 9 and 28 and platelet count was noted to be 428. Sodium 140, potassium 4.6, BUN and creatinine of 36 and 1.2, and blood sugar is noted to be 85. ASSESSMENT: This is a 77-year-old female admitted to the rehab with a working diagnosis of COPD induced myopathy. The patient has potential to make improvement. We instituted the following multidisciplinary therapies including but not limited to physical, occupational, respiratory, speech, nutritional services, prosthetics and orthotics. Given her complex medical condition and risk for more complications, rehabilitation services cannot be provided at a low level of care such as intermediate facility. PLAN: 1. Admit to [facility] for intensive inpatient therapy to include the following disciplines: A. Physical therapy to improve gait, all transfer skills and bed mobility to a modified independent level. B. Occupational therapy to improve activities of daily living to a modified independent level. C. Case management to assist with discharge planning and placement options. D. Nutrition to assist with nutritional needs. E. Rehabilitation nursing to assist in monitoring the patient's underlying HISTORY AND PHYSICAL [id number] DANAY WIGGINS medical conditions and to assist with any type of bowel or bladder management. 2. The patient's current medication and medical care will be continued. 3. The patient will be placed on standard fall precautions. 4. The patient's estimated length of stay is approximately 7-10 days. 5. We will discuss this patient during care team staff meeting this week. I am going to go ahead and watch her white count, but she is on prednisone at this time, which is expected to be elevated. 6. I am going to probably follow up her in the a.m. TRANSINT:[id number] Voice Confirmation ID: [id number] DOCUMENT ID: [id number] VIKI notes whether there has been none or any medical/functional change since admission: - No change since pre-admission screen. VIKI attests patient continues to be appropriate for IRF: - Continues to be appropriate. MICHAEL OTOOLE MD at 1916 CC: [id number] DICTATION DATE: 05/05/18833 MVA REACTOR OPERATOR HEAD: 05/05/18925 DIS IN 05/12/[address] [facility] [address] [place] [address]
[~2018-05-04 15:55] MED LIST changes: +ACETAMINOPHEN325 MG PO; +BENADRYL25 MG PO; +BROVANA15 MCG/2 M INH; +FERROUS SULFAT325 MG PO; +FUROSEMIDE20 MG PO; +IPRAT-ALBUT 0.5-3 ML UPD; +LISINOPRIL10 MG PO; +MUCINEX600 MG PO; +ONDANSETRON4 MG/2 M3 IV; +PREDNISONE20 MG PO; +PULMICORT0.5 MG/21 UPD; +VIBRAMYCIN 100100 MG PO
[2018-05-04 16:10] VITALS: BP 111/54; BMI 16.9
[2018-05-04 19:00] VITALS: BP 112/53
[2018-05-05 05:36] LABS: BASOPHILS 0.2 % (0-2); EOSINOPHILS 0.2 % (0-7); HEMATOCRIT 28.2 % (36.0-48.0); IMMATURE GRANULOCYTES 3.9 % (0-5); LYMPHOCYTES 16.2 % (15-50); MCH 30.1 pg (26.0-34.0); MCHC 31.9 g/dL (31.0-37.0); MCV 94.3 fL (80.0-100.0); MONOCYTES 15.9 % (2-11); NEUTROPHILS 63.6 % (40-80); PLATELET COUNT 428 10x3/uL (130-400); RBC 2.99 10x6/uL (4.00-5.40); RDW 16.4 % (11.5-14.5); WBC 16.4 10x3/uL (4.8-10.8)
[2018-05-05 05:52] LABS: ANION GAP 10.9 mmol/L (8-16); CALCIUM 9.3 mg/dL (8.5-10.1); CARBON DIOXIDE 28.7 mmol/L (21.0-32.0); CREATININE - SERUM 1.2 mg/dL (0.6-1.3); POTASSIUM - SERUM 4.6 mmol/L (3.5-5.1)
[2018-05-05 08:00] VITALS: BP 130/48
[2018-05-05 12:32] VITALS: Ht 167.6 cm; Wt 47.6 kg
[2018-05-05 19:00] VITALS: BP 118/49
[2018-05-06 08:00] VITALS: BP 103/48
[2018-05-06 19:30] VITALS: BP 131/53
[2018-05-07 08:57] VITALS: BP 109/67
[2018-05-07 20:11] VITALS: BP 108/44
[2018-05-08 05:48] LABS: BASOPHILS 0.1 % (0-2); EOSINOPHILS 0.1 % (0-7); HEMATOCRIT 27.4 % (36.0-48.0); HEMOGLOBIN 8.7 g/dL (12-16); IMMATURE GRANULOCYTES 1.7 % (0-5); LYMPHOCYTES 13.3 % (15-50); MCH 30.1 pg (26.0-34.0); MCHC 31.8 g/dL (31.0-37.0); MCV 94.8 fL (80.0-100.0); MEAN PLATELET VOLUME 9.9 fL (7.4-10.4); MONOCYTES 16.3 % (2-11); NEUTROPHILS 68.5 % (40-80); PLATELET COUNT 480 10x3/uL (130-400); RBC 2.89 10x6/uL (4.00-5.40); RDW 17.3 % (11.5-14.5); WBC 12.4 10x3/uL (4.8-10.8)
[2018-05-08 06:06] LABS: ANION GAP 9.2 mmol/L (8-16); CALCIUM 9.1 mg/dL (8.5-10.1); CARBON DIOXIDE 33.2 mmol/L (21.0-32.0); CREATININE - SERUM 1.2 mg/dL (0.6-1.3); POTASSIUM - SERUM 4.4 mmol/L (3.5-5.1)
[2018-05-08 08:00] VITALS: BP 123/58
[2018-05-08 19:00] VITALS: BP 129/62
[2018-05-09 19:00] VITALS: BP 106/50
[2018-05-10 07:22] LABS: BASOPHILS 0 % (0-2); EOSINOPHILS 0.3 % (0-7); HEMATOCRIT 27.1 % (36.0-48.0); HEMOGLOBIN 8.7 g/dL (12-16); IMMATURE GRANULOCYTES 0.9 % (0-5); LYMPHOCYTES 19.7 % (15-50); MCH 30.2 pg (26.0-34.0); MCHC 32.1 g/dL (31.0-37.0); MCV 94.1 fL (80.0-100.0); MEAN PLATELET VOLUME 9.6 fL (7.4-10.4); MONOCYTES 16.1 % (2-11); PLATELET COUNT 485 10x3/uL (130-400); RBC 2.88 10x6/uL (4.00-5.40); RDW 17.3 % (11.5-14.5); WBC 10.6 10x3/uL (4.8-10.8)
[2018-05-10 07:37] LABS: ANION GAP 9.4 mmol/L (8-16); CALCIUM 8.9 mg/dL (8.5-10.1); CARBON DIOXIDE 32.7 mmol/L (21.0-32.0); CREATININE - SERUM 1.1 mg/dL (0.6-1.3); POTASSIUM - SERUM 4.1 mmol/L (3.5-5.1)
[2018-05-11 08:00] VITALS: BP 126/48
[2018-05-11 19:00] VITALS: BP 102/57
[2018-05-12 07:24] LABS: ANION GAP 8.7 mmol/L (8-16); CALCIUM 9.1 mg/dL (8.5-10.1); CARBON DIOXIDE 36.2 mmol/L (21.0-32.0); CREATININE - SERUM 1.2 mg/dL (0.6-1.3); POTASSIUM - SERUM 3.9 mmol/L (3.5-5.1)
[2018-05-12 07:28] LABS: HEMATOCRIT 27.5 % (36.0-48.0); HEMOGLOBIN 9.1 g/dL (12-16); LYMPHOCYTES 18.6 % (15-50); MCH 30.8 pg (26.0-34.0); MCHC 33.1 g/dL (31.0-37.0); MCV 93.2 fL (80.0-100.0); MEAN PLATELET VOLUME 9.3 fL (7.4-10.4); NEUTROPHILS 69.4 % (40-80); PLATELET COUNT 457 10x3/uL (130-400); RBC 2.95 10x6/uL (4.00-5.40); RDW 16.9 % (11.5-14.5); WBC 11.8 10x3/uL (4.8-10.8)
[2018-05-12 08:00] VITALS: BP 109/61
== END 2018-05-12 13:31 | disposition home or self-care (01) | DRG 91 ==
LOC: D.REHAB 15:55
PROVIDERS: Emergency Medicine
DX: G72.89 Other specified myopathies (principal); J96.22 Acute and chronic respiratory failure with hypercapnia; J96.21 Acute and chronic respiratory failure with hypoxia; J44.9 Chronic obstructive pulmonary disease, unspecified; D64.9 Anemia, unspecified; E87.5 Hyperkalemia; Z66 Do not resuscitate; R62.7 Adult failure to thrive; F17.200 Nicotine dependence, unspecified, uncomplicated; I10 Essential (primary) hypertension; R41.82 Altered mental status, unspecified; R63.4 Abnormal weight loss; I89.0 Lymphedema, not elsewhere classified; R53.81 Other malaise; E86.9 Volume depletion, unspecified; D50.9 Iron deficiency anemia, unspecified

== ENCOUNTER 2018-05-27 10:16 | Inpatient (IN) | payer MEDICARE, OTHER ==
[~2018-05-27] VITALS: Ht 167.6 cm; Wt 57.3 kg
--- NOTE | ~2018-05-27 | MORECARE ---
CASE MANAGEMENT DISCHARGE SUMMARY PATIENT: DANAY WIGGINS UNIT: [id number] ADM DATE: 05/27/18 AGE: 77 : 39 SEX: F ROOM/BED: D.1209 AUTHOR: JACINTO MCCLURE PHYSICIAN: REFERRING PHYSICIAN: TAMELA BERGER MD DATE OF SERVICE: 06/02/18 Discharge Plan Patient Name: DANAY WIGGINS Facility: [facility]:[place] : 1940 Planned Disposition: Nursing Home Facility Anticipated Discharge Date: 05/30/18 Discharge Date: Expected LOS: 3 Initial Reviewer: [email or web address] Initial Review Date: 05/27/2018 Generated: 06/02/18 5:19 pm Comments DCP- Discharge Planning Updated by [email or web address]: Amna Dunbar on 06/02/18 3:[address] CM RECIEVED NOTICE THAT FAMILY WANTED TO DISCUSS OPTIONS AVAILABLE FOR DISCHARGE. CM MET WITH PATIENT AND HER SON DISCUSSED SNF FOR REHAB/ CUSTODIAL NH/ AND HOSPICE. AFTER VISITING WITH FAMILY CM NOTIFIED STEPHEN [facility] . SHE STATED THAT SHE WOULD BE HERE IN ABOUT 45 MINS TO SPEAK WITH FAMILY. AFTER STEPHEN MET WITH FAMILY A DECISION WAS MADE FOR [facility] FOR SNF PLACEMENT. RECORDS SENT TO STEPHEN AT [phone]. STEPHEN STATED SHE WOULD LET CM KNOW WHEN ALL ARRANGEMENTS WAS IN PLACE. DCP- Discharge Planning Updated by [email or web address]: Pam Laguna on 05/27/18 2:[address] Patient Name: DANAY WIGGINS Admission Status: ER Accout number: [id number] Admission Date: 05-27-2018 : 1940 Admission Diagnosis: Attending: TAMELA BERGER Current LOS: 1 Anticipated DC Date: 05-30-2018 Planned Disposition: Nursing Home Facility Primary Insurance: MEDICARE A & B Discharge Planning Comments: CM met with patient and her son Hardy to complete initial dc planning assessment. CM educated patient on the CM role and verbal consent given by patient and son to complete assessment. Patient lives at home alone. Her son lives about 150 ft from her home. He reports that since patient left Rehab a week ago she has required more assistance from him. He reports she is very weak and requires assistance with ambulating, transferring, cooking, cleaning, and bathing. CM discussed Skilled Rehab and home health. At this time patient would most benefit from Skilled Rehab. Son agrees and PURVI for signed for [facility] at discharge. Patient agreeable at this time. Order obtained from Dr. Ochoa for PT/OT consult to prepare for rehab admission. CM will continue to follow and will assist as needed with dc plans/needs. See below for more assessment information. Radio Station Audio Engineer: Pam Laguna RN, [facility] DCPIA - Discharge Planning Initial Assessment Updated by [id number]: Pam Laguna on 05/27/18 3:01 pm * Is the patient Alert and Oriented? Yes * How many steps to enter\exit or inside your home? None * PCP Dr. Berger * [facility] [place] [facility] [place] * Preadmission Environment Home Alone * ADLs Partial Dependent * Partial ADLs (Assistance needed) Ambulation Bathing Toileting Transfers * Equipment BIPAP Nebulizer Oxygen Rolling Walker * Other Equipment Wears Bipap 4 hours a day, and wears O2 24/. * List name and contact numbers for known caregivers / representatives who currently or will assist patient after discharge: Hardy Wiggins - enrike - [phone] * Verbal permission to speak to the caregivers and representatives has been obtained from the patient. Yes * Community resources currently utilized None * Additional services required to return to the preadmission environment? Yes * Can the patient safely return to the preadmission environment? No * Has this patient been hospitalized within the prior 30 days at any hospital? Yes Last DP export: 06/02/18 2:05 Patient Name: DANAY WIGGINS Page 53958 at 1619 All edits/amendments must be made on the electronic document DICTATION DATE: 06/02/181618 CULLED FRUIT PACKER: KELLY 06/02/181618 RPT#: [id number] DC DATE: STATUS: ADM IN [facility] [address] [place] [address] END OF REPORT
--- NOTE | ~2018-05-27 | MORECARE ---
CASE MANAGEMENT DISCHARGE SUMMARY PATIENT: DANAY WIGGINS UNIT: [id number] ADM DATE: 05/27/18 AGE: 77 : 39 SEX: F ROOM/BED: D.1211 AUTHOR: JACINTO MCCLURE PHYSICIAN: REFERRING PHYSICIAN: TAMELA TAVARES MD DATE OF SERVICE: 05/27/18 Discharge Plan Patient Name: DANAY WIGGINS Facility: [facility]:[place] : 1940 Planned Disposition: [facility] Facility Anticipated Discharge Date: 05/30/18 Discharge Date: Expected LOS: 3 Initial Reviewer: [email or web address] Initial Review Date: 05/27/2018 Generated: 05/27/18 3:51 pm Patient Name: DANAY WIGGINS Page 11971 at 1451 All edits/amendments must be made on the electronic document DICTATION DATE: 05/27/181450 PROFESSOR OF VIOLIN: KELLY 05/27/181450 RPT#: [id number] DC DATE: STATUS: ADM IN [facility] [address] [place] [address] END OF REPORT
--- NOTE | ~2018-05-27 | MORECARE ---
CASE MANAGEMENT DISCHARGE SUMMARY PATIENT: DANAY WIGGINS UNIT: [id number] ADM DATE: 05/27/18 AGE: 77 : 39 SEX: F ROOM/BED: D.1209 AUTHOR: RENDOC PHYSICIAN: REFERRING PHYSICIAN: TAMELA BERGER MD DATE OF SERVICE: 06/06/18 Discharge Plan Patient Name: DANAY WIGGINS Facility: [facility]:[place] : 1940 Planned Disposition: [facility] Facility Anticipated Discharge Date: 05/30/18 Discharge Date: 06/06/2018 Expected LOS: 3 Initial Reviewer: [email or web address] Initial Review Date: 05/27/2018 Generated: 06/06/18 5:00 pm Comments DCP- Discharge Planning Updated by [email or web address]: Amna Dunbar on 06/05/18 3:[address] Patient Name: DANAY WIGGINS Encounter No: [id number] : 1940 Primary Insurance: MEDICARE A & B Anticipated DC Date: 05-30-2018 Planned Disposition: [facility] Facility External Planned Provider: : WENCESLAO called and spoke with Stephen Mishra and she stated that patient was accepted into [facility]. WENCESLAO then notified nursing staff and they are getting in touch with physicians to see when discharge plans are. CM received call back from Stephen that Van will be able to continuous pickling line pickler helper patient 06/06/18 around 1 pm. [facility] is also having to get BiPap prepared for patient also. Plan for discharge on Tuesday06/06/18. IMM explained and served 06/05/18 @ 1505 DC follow-up note: Patient and family in agreement with discharge plan. No changes to plan. Case management will follow and assist as needed. Amna Dunbar DCP- Discharge Planning Updated by [email or web address]: Amna Dunbar on 06/02/18 3:[address] CM RECIEVED NOTICE THAT FAMILY WANTED TO DISCUSS OPTIONS AVAILABLE FOR DISCHARGE. CM MET WITH PATIENT AND HER SON DISCUSSED SNF FOR REHAB/ [facility] NH/ AND HOSPICE. AFTER VISITING WITH FAMILY CM [facility] SHE STATED THAT SHE WOULD BE HERE IN ABOUT 45 MINS TO SPEAK WITH FAMILY. AFTER STEPHEN MET WITH FAMILY A DECISION WAS MADE FOR [facility] IN [place] FOR SNF PLACEMENT. RECORDS SENT TO STEPHEN AT [phone]. STEPHEN STATED SHE WOULD LET CM KNOW WHEN ALL ARRANGEMENTS WAS IN PLACE. DCP- Discharge Planning Updated by [email or web address]: Pam Laguna on 05/27/18 2:[address] Patient Name: DANAY WIGGINS Admission Status: ER Accout number: [id number] Admission Date: 05-27-2018 : 1940 Admission Diagnosis: Attending: TAMELA BERGER Current LOS: 1 Anticipated DC Date: 05-30-2018 Planned Disposition: [facility] Facility Primary Insurance: MEDICARE A & B Discharge Planning Comments: CM met with patient and her son Hardy to complete initial dc planning assessment. CM educated patient on the CM role and verbal consent given by patient and son to complete assessment. Patient lives at home alone. Her son lives about 150 ft from her home. He reports that since patient left Rehab a week ago she has required more assistance from him. He reports she is very weak and requires assistance with ambulating, transferring, cooking, cleaning, and bathing. CM discussed Skilled Rehab and home health. At this time patient would most benefit from Skilled Rehab. Son agrees and PURVI for signed for [facility] at discharge. Patient agreeable at this time. Order obtained from Dr. Ochoa for PT/OT consult to prepare for rehab admission. CM will continue to follow and will assist as needed with dc plans/needs. See below for more assessment information. Steel Sampler: Pam Laguna RN, [facility] DCPIA - Discharge Planning Initial Assessment Updated by [id number]: Pam Laguna on 05/27/18 3:01 pm * Is the patient Alert and Oriented? Yes * How many steps to enter\exit or inside your home? None * PCP Dr. Berger * [facility] in [place] or [facility] in [place] * Preadmission Environment Home Alone * ADLs Partial Dependent * Partial ADLs (Assistance needed) Ambulation Bathing Toileting Transfers * Equipment BIPAP Nebulizer Oxygen Rolling Walker * Other Equipment Wears Bipap 4 hours a day, and wears O2 24/7. * List name and contact numbers for known caregivers / representatives who currently or will assist patient after discharge: Hardy Wiggins - son - [phone] * Verbal permission to speak to the caregivers and representatives has been obtained from the patient. Yes * Community resources currently utilized None * Additional services required to return to the preadmission environment? Yes * Can the patient safely return to the preadmission environment? No * Has this patient been hospitalized within the prior 30 days at any hospital? Yes Coverage Notice Reviewer: [email or web address] Malia Dunbar Notice Issued Date-Time: 06/05/2018 15:05 Notice Type: IM Discharge Notice Notice Delivered To: Patient Relationship to Patient: Self Laborer [facility] Name: Delivery Method: HAND - Hand Delivered Christin Days: Prior Verbal Notification: Recipient Understood Notice: Yes Recipient Signature: Yes Med Rec Note Co-signed by Attending: Coverage Notice Comment: Last DP export: 06/05/18 3:21 Patient Name: DANAY WIGGINS Page [id number] at 1601 All edits/amendments must be made on the electronic document DICTATION DATE: 06/06/181599 MOLASSES COLORING OPERATOR: KELLY 06/06/18 1600 RPT#: [id number] DC DATE:06/06/18 STATUS: DIS IN [facility] [address] [place] [address] END OF REPORT
--- NOTE | ~2018-05-27 | MORECARE ---
CASE MANAGEMENT DISCHARGE SUMMARY PATIENT: DANAY WIGGINS UNIT: [id number] ADM DATE: 05/27/18 AGE: 77 : 39 SEX: F ROOM/BED: D.1209 AUTHOR: JACINTO MCCLURE PHYSICIAN: REFERRING PHYSICIAN: TAMELA BERGER MD DATE OF SERVICE: 06/02/18 Discharge Plan Patient Name: DANAY WIGGINS Facility: [facility]:[place] : 1940 Planned Disposition: Residential Facility Anticipated Discharge Date: 05/30/18 Discharge Date: Expected LOS: 3 Initial Reviewer: [email or web address] Initial Review Date: 05/27/2018 Generated: 06/02/18 4:05 pm DCP- Discharge Planning Updated by [id number]: Pam Laguna on 05/27/18 2:[address] Patient Name: DANAY WIGGINS Admission Status: ER Accout number: [id number] Admission Date: 05-27-2018 : 1940 Admission Diagnosis: Attending: TAMELA BERGER Current LOS: 1 Anticipated DC Date: 05-30-2018 Planned Disposition: Residential Facility Primary Insurance: MEDICARE A & B Discharge Planning Comments: CM met with patient and her son Hardy to complete initial dc planning assessment. CM educated patient on the CM role and verbal consent given by patient and son to complete assessment. Patient lives at home alone. Her son lives about 150 ft from her home. He reports that since patient left Rehab a week ago she has required more assistance from him. He reports she is very weak and requires assistance with ambulating, transferring, cooking, cleaning, and bathing. CM discussed Skilled Rehab and home health. At this time patient would most benefit from Skilled Rehab. Son agrees and PURVI for signed for [facility] at discharge. Patient agreeable at this time. Order obtained from Dr. Ochoa for PT/OT consult to prepare for rehab admission. CM will continue to follow and will assist as needed with dc plans/needs. See below for more assessment information. Data Storage Specialist: Pam Laguna RN, [facility] DCPIA - Discharge Planning Initial Assessment Updated by [email or web address]: Pam Laguna on 05/27/18 3:01 pm * Is the patient Alert and Oriented? Yes * How many steps to enter\exit or inside your home? None * PCP Dr. Berger * [facility] [place] or [facility] [place] * Preadmission Environment Home Alone * ADLs Partial Dependent * Partial ADLs (Assistance needed) Ambulation Bathing Toileting Transfers * Equipment BIPAP Nebulizer Oxygen Rolling Walker * Other Equipment Wears Bipap 4 hours a day, and wears O2 24/7. * List name and contact numbers for known caregivers / representatives who currently or will assist patient after discharge: Hardy Wiggins - enrike - [phone] * Verbal permission to speak to the caregivers and representatives has been obtained from the patient. Yes * Community resources currently utilized None * Additional services required to return to the preadmission environment? Yes * Can the patient safely return to the preadmission environment? No * Has this patient been hospitalized within the prior 30 days at any hospital? Yes External Providers External Provider: Critical access hospital Next Contact Date: Service Request Date: Service Type: Resolution: Reviewer: Comments: Last DP export: 05/27/18 2:07 Patient Name: DANAY WIGGINS Page [phone] at 1505 All edits/amendments must be made on the electronic document DICTATION DATE: 06/02/181504 ROCKET ENGINE COMPONENT MECHANIC: KELLY 06/02/18 150 RPT#: [id number] DC DATE: STATUS: ADM IN [facility] [address] [place] [address] END OF REPORT
--- NOTE | ~2018-05-27 | MORECARE ---
CASE MANAGEMENT DISCHARGE SUMMARY PATIENT: DANAY WIGGINS UNIT: [id number] ADM DATE: 05/27/18 AGE: 77 : 39 SEX: F ROOM/BED: D.1211 AUTHOR: JACINTO MCCLURE PHYSICIAN: REFERRING PHYSICIAN: TAMELA BERGER MD DATE OF SERVICE: 05/27/18 Discharge Plan Patient Name: DANAY WIGGINS Facility: [facility]:[place] : 1940 Planned Disposition: Nursing Home Facility Anticipated Discharge Date: 05/30/18 Discharge Date: Expected LOS: 3 Initial Reviewer: [email or web address] Initial Review Date: 05/27/2018 Generated: 05/27/18 4:07 pm DCP- Discharge Planning Updated by [email or web address]: Pam Laguna on 05/27/18 2:[address] Patient Name: DANAY WIGGINS Admission Status: ER Accout number: [id number] Admission Date: 05-27-2018 : 1940 Admission Diagnosis: Attending: TAMELA BERGER Current LOS: 1 Anticipated DC Date: 05-30-2018 Planned Disposition: Nursing Home Facility Primary Insurance: MEDICARE A & B Discharge Planning Comments: CM met with patient and her son Hardy to complete initial dc planning assessment. CM educated patient on the CM role and verbal consent given by patient and son to complete assessment. Patient lives at home alone. Her son lives about 150 ft from her home. He reports that since patient left Rehab a week ago she has required more assistance from him. He reports she is very weak and requires assistance with ambulating, transferring, cooking, cleaning, and bathing. CM discussed Skilled Rehab and home health. At this time patient would most benefit from Skilled Rehab. Son agrees and PURVI for signed for [facility] at discharge. Patient agreeable at this time. Order obtained from Dr. Ochoa for PT/OT consult to prepare for rehab admission. CM will continue to follow and will assist as needed with dc plans/needs. See below for more assessment information. Carton Filling Machine Operator: Pam Laguna RN, [facility] DCPIA - Discharge Planning Initial Assessment Updated by [email or web address]: Pam Laguna on 05/27/18 3:01 pm * Is the patient Alert and Oriented? Yes * How many steps to enter\exit or inside your home? None * PCP Dr. Berger * [facility] [place] or [facility] in [place] * Preadmission Environment Home Alone * ADLs Partial Dependent * Partial ADLs (Assistance needed) Ambulation Bathing Toileting Transfers * Equipment BIPAP Nebulizer Oxygen Rolling Walker * Other Equipment Wears Bipap 4 hours a day, and wears O2 24/7. * List name and contact numbers for known caregivers / representatives who currently or will assist patient after discharge: Hardy Wiggins - enrike - [phone] * Verbal permission to speak to the caregivers and representatives has been obtained from the patient. Yes * Community resources currently utilized None * Additional services required to return to the preadmission environment? Yes * Can the patient safely return to the preadmission environment? No * Has this patient been hospitalized within the prior 30 days at any hospital? Yes Last DP export: 05/27/18 2:00 Patient Name: DANAY WIGGINS Page 35691 at 1507 All edits/amendments must be made on the electronic document DICTATION DATE: 05/27/181506 PROSPECTING OBSERVER: KELLY 05/27/18 150 RPT#: [id number] DC DATE: STATUS: ADM IN [facility] [address] [place] [address] END OF REPORT
--- NOTE | ~2018-05-27 | MORECARE ---
CASE MANAGEMENT DISCHARGE SUMMARY PATIENT: DANAY WIGGINS UNIT: [id number] ADM DATE: 05/27/18 AGE: 77 : 39 SEX: F ROOM/BED: D.1209 AUTHOR: JACINTO MCCLURE PHYSICIAN: REFERRING PHYSICIAN: TAMELA BERGER MD DATE OF SERVICE: 06/05/18 Discharge Plan Patient Name: DANAY WIGGINS Facility: [facility]:Deputy : 1940 Planned Disposition: Jail Facility Anticipated Discharge Date: 05/30/18 Discharge Date: Expected LOS: 3 Initial Reviewer: [id number] Initial Review Date: 05/27/2018 Generated: 06/05/18 5:21 pm Comments DCP- Discharge Planning Updated by [id number]: Amna Dunbar on 06/05/18 3:[address] Patient Name: DANAY WIGGINS Encounter No: [id number] : 1940 Primary Insurance: MEDICARE A & B Anticipated DC Date: 05-30-2018 Planned Disposition: Jail Facility External Planned Provider: : WENCESLAO called and spoke with Stephen Mishra and she stated that patient was accepted into [facility]. WENCESLAO then notified nursing staff and they are getting in touch with physicians to see when discharge plans are. CM received call back from Stephen that Van will be able to supervisor picking crew patient 06/06/18 around 1 pm. [facility] is also having to get BiPap prepared for patient also. Plan for discharge on Tuesday06/06/18. IMM explained and served 06/05/18 @ 1505 DCP follow-up note: Patient and family in agreement with discharge plan. No changes to plan. Case management will follow and assist as needed. Amna Dunbar DCP- Discharge Planning Updated by [id number]: Amna Dunbar on 06/02/18 3:[address] CM RECIEVED NOTICE THAT FAMILY WANTED TO DISCUSS OPTIONS AVAILABLE FOR DISCHARGE. CM MET WITH PATIENT AND HER SON DISCUSSED SNF FOR REHAB/ [facility]/ AND HOSPICE. AFTER VISITING WITH FAMILY WENCESLAO [facility] . SHE STATED THAT SHE WOULD BE HERE IN ABOUT 45 MINS TO SPEAK WITH FAMILY. AFTER STEPHEN MET WITH FAMILY A DECISION WAS MADE FOR [facility] IN [place] FOR SNF PLACEMENT. RECORDS SENT TO STEPHEN AT [phone]. STEPHEN STATED SHE WOULD LET CM KNOW WHEN ALL ARRANGEMENTS WAS IN PLACE. DCP- Discharge Planning Updated by [id number]: Pam Laguna on 05/27/18 2:[address] Patient Name: DANAY WIGGINS Admission Status: ER Accout number: [id number] Admission Date: 05-27-2018 : 1940 Admission Diagnosis: Attending: TAMELA BERGER Current LOS: 1 Anticipated DC Date: 05-30-2018 Planned Disposition: Jail Facility Primary Insurance: MEDICARE A & B Discharge Planning Comments: CM met with patient and her son Hardy to complete initial dc planning assessment. CM educated patient on the CM role and verbal consent given by patient and son to complete assessment. Patient lives at home alone. Her son lives about 150 ft from her home. He reports that since patient left Rehab a week ago she has required more assistance from him. He reports she is very weak and requires assistance with ambulating, transferring, cooking, cleaning, and bathing. CM discussed Skilled Rehab and home health. At this time patient would most benefit from Skilled Rehab. Son agrees and PURVI for signed for [facility] at discharge. Patient agreeable at this time. Order obtained from Dr. Ochoa for PT/OT consult to prepare for rehab admission. CM will continue to follow and will assist as needed with dc plans/needs. See below for more assessment information. Service Station Operator: Pam Laguna RN, [facility] DCPIA - Discharge Planning Initial Assessment Updated by [email or web address]: Pam Laguna on 05/27/18 3:01 pm * Is the patient Alert and Oriented? Yes * How many steps to enter\exit or inside your home? None * PCP Dr. Berger * Pharmacy [facility] [place] or [facility] in [place] * Preadmission Environment Home Alone * ADLs Partial Dependent * Partial ADLs (Assistance needed) Ambulation Bathing Toileting Transfers * Equipment BIPAP Nebulizer Oxygen Rolling Walker * Other Equipment Wears Bipap 4 hours a day, and wears O2 24/7. * List name and contact numbers for known caregivers / representatives who currently or will assist patient after discharge: Hardy Wiggins - son - [phone] * Verbal permission to speak to the caregivers and representatives has been obtained from the patient. Yes * Community resources currently utilized None * Additional services required to return to the preadmission environment? Yes * Can the patient safely return to the preadmission environment? No * Has this patient been hospitalized within the prior 30 days at any hospital? Yes Coverage Notice Reviewer: [id number] - Amna Dunbar Notice Issued Date-Time: 06/05/2018 15:05 Notice Type: IM Discharge Notice Notice Delivered To: Patient Relationship to Patient: Self Recreation Instructor Name: Delivery Method: HAND - Hand Delivered Christin Days: Prior Verbal Notification: Recipient Understood Notice: Yes Recipient Signature: Yes Med Rec Note Co-signed by Attending: Coverage Notice Comment: Last DP export: 06/02/18 3:19 Patient Name: DANAY WIGGINS Page [id number] at 1621 All edits/amendments must be made on the electronic document DICTATION DATE: 06/05/181619 INCIDENT ANALYST: KELLY 06/05/181619 RPT#: [id number] DC DATE: STATUS: ADM IN [facility] [address] [place] [address] END OF REPORT
--- NOTE | ~2018-05-27 | MORECARE ---
CASE MANAGEMENT DISCHARGE SUMMARY PATIENT: DANAY WIGGINS UNIT: [id number] ADM DATE: 05/27/18 AGE: 77 : 39 SEX: F ROOM/BED: D.1211 AUTHOR: JACINTO MCCLURE PHYSICIAN: REFERRING PHYSICIAN: TAMELA TAVARES MD DATE OF SERVICE: 05/27/18 Discharge Plan Patient Name: DANA[facility]IGGINS [facility] [facility] 1940 Planned Disposition: Nursing Home Facility Anticipated Discharge Date: 05/30/18 Discharge Date: Expected LOS: 3 Initial Reviewer: [email or web address] Initial Review Date: 05/27/2018 Generated: 05/27/18 4:00 pm Last DP export: 05/27/18 1:51 Patient Name: DANAY WIGGINS Page [id number] at 1500 All edits/amendments must be made on the electronic document DICTATION DATE: 05/27/181458 MANDARIN SPEAKING NANNY: KELLY 05/27/18 145 RPT#: [id number] DC DATE: STATUS: ADM IN [facility] [address] [place] [address] END OF REPORT
--- NOTE | ~2018-05-27 | HP ---
PATIENT: DANAY WIGGINS MEDICAL RECORD: [id number] ACCOUNT: [id number] LOCATION:[address] : 38 ADMISSION DATE: 05/27/18 PCP: No PCP HISTORY AND PHYSICAL EXAMINATION REASON FOR ADMISSION: Shortness of breath and poor appetite. HISTORY OF PRESENT ILLNESS: The patient is a 77-year-old female who was discharged from [facility] on May 10 of this year after being hospitalized for a week for respiratory failure with hypoxemia and hypercarbia. She has been living at home with her son, has been helping care for her. She has been doing updraft 3 times a day and BiPAP at night. Since that she saw Dr. Toure 5 days prior to admission, was at her baseline, but then fairly acutely yesterday morning, felt worse, was not eating, felt more short of breath and coughing. For this reason, he brought her to the Emergency Room today. He has not documented any fever and she has been alert, just poor appetite. She has not had any of her medications this morning he states. He also reiterates her wish to be DNR, DO NOT INTUBATE. PAST MEDICAL HISTORY: Recent acute respiratory failure with hypoxemia, hypercarbia, O2 dependent COPD, pulmonary cachexia, anemia of chronic disease, chronic lymphedema, failure to thrive, essential hypertension, osteoporosis, osteoarthritis, remote nicotine addiction. ALLERGIES: LEVAQUIN AND CELEBREX. SOCIAL HISTORY: She smoked for many years, greater than 83-wugs-evgl history, quit 3 years ago. She is since 2013. Lives with her son and his daughter and they have taken very good care of her. FAMILY HISTORY: Positive for CAD and COPD in both of her parents who are . HOME MEDICATIONS: She does BiPAP at bedtime, Benadryl 25 mg every 4 hours p.r.n. allergic reaction, Brovana 15 mcg inhaled b.i.d., DuoNeb updrafts every 8 hours, ferrous sulfate 325 mg p.o. daily, lisinopril 10 mg daily, aspirin 81 mg daily, calcium carbonate with vitamin D 500 mg b.i.d., Pulmicort 0.5 mg in updrafts b.i.d., guaifenesin 600 mg p.o. b.i.d., prednisone 20 mg p.o. daily on tapering dosage. REVIEW OF SYSTEMS: GENERAL: Had been her baseline until the last 36 hours and became more short of breath, tired and fatigued, and poor appetite. HEENT: No visual change, sinus congestion, sore throat or hearing difficulty. RESPIRATORY: Increased shortness of breath, dry cough and air hunger. CARDIAC: No chest pain, claudication. Has chronic peripheral edema. GASTROINTESTINAL: No nausea, vomiting, poor appetite. No blood per rectum. GENITOURINARY: No incontinence. GYNECOLOGIC: No vaginal bleeding. ENDOCRINE: Denies polyuria, polydipsia, heat or cold intolerance. NEUROLOGIC: Denies headache, visual change. No history of stroke, TIA, vascular headaches, or seizures. INTEGUMENT: No rash or itching. PSYCHIATRIC: Denies depressed mood. HISTORY AND PHYSICAL [id number] FELICIANODANAY Meza PHYSICAL EXAMINATION: VITAL SIGNS: Pulse 128 and regular initially, now 114; respirations 26 initially, now 23; blood pressure 115/88; sats 98% on room air. HEENT: Normocephalic. Eyes are clear with arcus senilis. Sclerae nonicteric. Oropharynx with dry mucous membranes. NECK: Supple, without bruits or masses. She has a subcutaneous sebaceous cyst above her thyroid cartilage midline. No JVD appreciated. CHEST: She has distant breath sounds with pursed lip breathing and slight crackles in the left base. No retractions. HEART: Tachycardic without murmur. ABDOMEN: Soft, scaphoid. No masses felt, nontender. PELVIC: Deferred. EXTREMITIES: She has 2+ bipedal and 1+ pretibial edema of the knees bilaterally. SKIN: Appears intact. No icterus. NEUROLOGIC: She is oriented to person, place, and time. Cranial nerves are intact. Gait was not tested. No localizing sensory or motor deficits appreciated. LABORATORY DATA: [place] [address] with 84% neutrophils. H&H is 10 and 33.2 respectively, platelet count is adequate. Chemistry reveals a CO2 of 35.9, creatinine of 1.3, glucose of 130, nonfasting. ProBNP is 1550, potassium 4.8. Urine is concentrated and cloudy, 2+ blood, nitrite positive, many bacteria, 0-5 white cells, 5-10 red cells. D-dimer is 1.27. INR is 1.14. Chest x-ray reveals COPD changes, left perihilar and lower lobe airspace disease compatible with pneumonia. Right lung is clear. ASSESSMENT: 1. Hospital-acquired left lower lobe pneumonia. 2. Chronic obstructive pulmonary disease, O2 dependent, with hypercarbia. 3. Urinary tract infection. 4. Anorexia. 5. Hypertension. 6. Intravascular volume depletion. PLAN: The patient has been admitted to the medical floor for IV antibiotics, pulmonary toilet, BiPAP is indicated. This son reiterates her DNR/DNI status. TRANSINT:[id number] Voice Confirmation ID: [id number] DOCUMENT ID: [id number] TAMELA TAVARES MD at 2005 CC: [id number] DICTATION DATE: 05/27/18 1521 STAPLE FIBER WASHER: 05/27/18 1609 ADM IN [facility] [place] [address] [place] [address]
[2018-05-27 11:06] VITALS: BP 115/88
[2018-05-27 11:22] LABS: BASOPHILS 0.1 % (0-2); EOSINOPHILS 0 % (0-7); HEMATOCRIT 33.2 % (36.0-48.0); HEMOGLOBIN 10.1 g/dL (12-16); IMMATURE GRANULOCYTES 0.6 % (0-5); LYMPHOCYTES 3.7 % (15-50); MCHC 30.4 g/dL (31.0-37.0); MCV 98.5 fL (80.0-100.0); MEAN PLATELET VOLUME 9.7 fL (7.4-10.4); MONOCYTES 11.7 % (2-11); NEUTROPHILS 83.9 % (40-80); RBC 3.37 10x6/uL (4.00-5.40); RDW 16.2 % (11.5-14.5); WBC 11.8 10x3/uL (4.8-10.8)
[2018-05-27 11:28] LABS: PLATELET COUNT 278 10x3/uL (130-400)
[2018-05-27 11:38] LABS: APTT 24.8 SECONDS (22.8-39.4); INR 1.14 (0.85-1.17); PROTIME 14.2 SECONDS (11.6-15.0)
[2018-05-27 11:40] LABS: D-DIMER-QUANTITATIVE 1.27 ug/mLFEU (0.20-0.54)
[2018-05-27 11:45] LABS: ALBUMIN 2.4 g/dL (3.4-5.0); CHLORIDE - SERUM 103 mmol/L (98-107); POTASSIUM - SERUM 4.8 mmol/L (3.5-5.1); SODIUM 144 mmol/L (136-145); UREA NITROGEN 49 mg/dL (7-18)
[2018-05-27 11:48] LABS: ALKALINE PHOSPHATASE 65 U/L (46-116); ALT (SGPT) 29 U/L (10-68); BILIRUBIN - TOTAL 0.33 mg/dL (0.2-1.3); CALC OSMOLALITY 301 mosm/kg (275-300); CALCIUM 9.5 mg/dL (8.5-10.1); CARBON DIOXIDE 35.9 mmol/L (21.0-32.0); CREATININE - SERUM 1.3 mg/dL (0.6-1.3); PROTEIN - SERUM 5.8 g/dL (6.4-8.2); eGFR NON AFRICAN AMERICAN 42 mL/min (90-120)
[2018-05-27 11:55] LABS: GLUCOSE 130 mg/dL (74-106)
[2018-05-27 11:58] LABS: CKMB 0.8 U/L (0.0-3.6); CREATINE KINASE 15 UL (21-215); PRO BNP 1550 pg/mL (0-450); TROPONIN-I < 0.017 ng/mL (0.000-0.060)
[2018-05-27 12:37] VITALS: BP 103/44
[2018-05-27 13:09] LABS: APPEARANCE CLOUDY (CLEAR); COLOR YELLOW (YELLOW)
[2018-05-27 13:10] LABS: BILIRUBIN NEGATIVE (NEGATIVE); GLUCOSE NEGATIVE (NEGATIVE); KETONE NEGATIVE (NEGATIVE); NITRITE POSITIVE (NEGATIVE); PROTEIN 1+ mg/dL (NEGATIVE); SPECIFIC GRAVITY 1.025 (1.005-1.020); UROBILINOGEN NORMAL (NORMAL)
[2018-05-27 13:12] LABS: BACTERIA MANY /hpf (NONE SEEN); EPITHELIAL CELLS 0-5 /hpf (0-5); GRANULAR CAST 0-5 /lpf (NONE SEEN); MUCUS <1+ /lpf (NONE SEEN); WHITE CELLS - URINE 0-5 /hpf (0-5)
[2018-05-27 14:16] VITALS: BP 107/57
[2018-05-27] MEDS ORDERED: POTASSIUM CHLO10 ME1 PO (16:05)
[2018-05-27 16:07] VITALS: BP 119/61; BMI 19.9
[2018-05-27 20:09] VITALS: BP 136/70
[2018-05-28 00:03] VITALS: BP 110/67
[2018-05-28 04:45] VITALS: BP 111/68
[2018-05-28 06:48] LABS: BASOPHILS 0.1 % (0-2); EOSINOPHILS 0 % (0-7); HEMATOCRIT 30.7 % (36.0-48.0); HEMOGLOBIN 9.5 g/dL (12-16); IMMATURE GRANULOCYTES 0.7 % (0-5); LYMPHOCYTES 6.4 % (15-50); MCH 30.3 pg (26.0-34.0); MCHC 30.9 g/dL (31.0-37.0); MCV 97.8 fL (80.0-100.0); MONOCYTES 6.5 % (2-11); NEUTROPHILS 86.3 % (40-80); PLATELET COUNT 285 10x3/uL (130-400); RBC 3.14 10x6/uL (4.00-5.40); RDW 16.3 % (11.5-14.5); WBC 13.9 10x3/uL (4.8-10.8)
[2018-05-28 07:05] VITALS: BP 131/57
[2018-05-28 07:35] LABS: ANION GAP 14.5 mmol/L (8-16); CALCIUM 8.6 mg/dL (8.5-10.1); CARBON DIOXIDE 28.2 mmol/L (21.0-32.0); CREATININE - SERUM 1.5 mg/dL (0.6-1.3); MAGNESIUM - SERUM 2.3 mg/dL (1.8-2.4); POTASSIUM - SERUM 4.7 mmol/L (3.5-5.1)
[2018-05-28 11:11] VITALS: BP 106/45
[2018-05-28 15:31] VITALS: BP 95/50
[2018-05-28 20:00] VITALS: BP 100/54
[2018-05-29 00:16] VITALS: BP 148/68
[2018-05-29 04:30] VITALS: BP 126/70
[2018-05-29 05:23] LABS: BASOPHILS 0 % (0-2); EOSINOPHILS 0 % (0-7); HEMATOCRIT 26.5 % (36.0-48.0); HEMOGLOBIN 8.3 g/dL (12-16); IMMATURE GRANULOCYTES 0.3 % (0-5); LYMPHOCYTES 3.2 % (15-50); MCH 30.1 pg (26.0-34.0); MCHC 31.3 g/dL (31.0-37.0); MONOCYTES 5.1 % (2-11); NEUTROPHILS 91.4 % (40-80); PLATELET COUNT 301 10x3/uL (130-400); RBC 2.76 10x6/uL (4.00-5.40); RDW 16.4 % (11.5-14.5); WBC 11.5 10x3/uL (4.8-10.8)
[2018-05-29 05:52] LABS: ANION GAP 11.1 mmol/L (8-16); CALCIUM 8.7 mg/dL (8.5-10.1); CARBON DIOXIDE 30.4 mmol/L (21.0-32.0); CREATININE - SERUM 1.3 mg/dL (0.6-1.3); POTASSIUM - SERUM 4.5 mmol/L (3.5-5.1)
[2018-05-29 07:45] VITALS: BP 122/65
[2018-05-29 11:12] VITALS: BP 128/70
[2018-05-29 12:22] VITALS: Ht 167.6 cm; Wt 57.3 kg
[2018-05-29 17:59] VITALS: BP 132/62
[2018-05-29 19:40] VITALS: BP 124/77
[2018-05-30] VITALS (8 sets, daily range): BP systolic 106–148; BP diastolic 64–79
[2018-05-31 04:15] VITALS: BP 136/46
[2018-05-31 06:01] LABS: BASOPHILS 0 % (0-2); EOSINOPHILS 0 % (0-7); HEMATOCRIT 25.2 % (36.0-48.0); HEMOGLOBIN 7.9 g/dL (12-16); IMMATURE GRANULOCYTES 0.8 % (0-5); LYMPHOCYTES 4.6 % (15-50); MCH 30.2 pg (26.0-34.0); MCHC 31.3 g/dL (31.0-37.0); MCV 96.2 fL (80.0-100.0); MEAN PLATELET VOLUME 9.4 fL (7.4-10.4); MONOCYTES 6.2 % (2-11); NEUTROPHILS 88.4 % (40-80); PLATELET COUNT 322 10x3/uL (130-400); RBC 2.62 10x6/uL (4.00-5.40); RDW 16.6 % (11.5-14.5); WBC 7.8 10x3/uL (4.8-10.8)
[2018-05-31 06:28] LABS: CALCIUM 8.6 mg/dL (8.5-10.1); CARBON DIOXIDE 27.4 mmol/L (21.0-32.0); POTASSIUM - SERUM 4.4 mmol/L (3.5-5.1)
[2018-05-31 08:18] VITALS: BP 132/76
[2018-05-31 11:39] VITALS: BP 147/85
[2018-05-31 17:06] VITALS: BP 142/72
[2018-05-31 19:59] VITALS: BP 145/72
[2018-06-01 00:26] VITALS: BP 145/73
[2018-06-01 04:25] VITALS: BP 162/87
[2018-06-01 07:30] VITALS: BP 173/85
[2018-06-01 11:08] VITALS: BP 159/87
[2018-06-01 15:39] VITALS: BP 163/87
[2018-06-01 21:28] VITALS: BP 137/69
[2018-06-02 05:54] VITALS: BP 118/73
[2018-06-02 08:10] VITALS: BP 129/71
[2018-06-02 12:00] VITALS: BP 138/73
[2018-06-02 16:00] VITALS: BP 138/69
[2018-06-02 20:24] VITALS: BP 145/72
[2018-06-03 06:28] VITALS: BP 154/76
[2018-06-03 09:23] VITALS: BP 145/73
[2018-06-03 12:11] VITALS: BP 136/74
[2018-06-03 16:27] VITALS: BP 136/75
[2018-06-03 21:00] VITALS: BP 133/76
[2018-06-04 04:37] VITALS: BP 154/82
[2018-06-04 10:16] VITALS: BP 146/75
[2018-06-04 13:25] VITALS: BP 110/68
[2018-06-04 16:26] VITALS: BP 112/57
[2018-06-04 19:50] VITALS: BP 138/75
[2018-06-04 23:30] VITALS: BP 142/75
[2018-06-05 03:55] VITALS: BP 157/85
[2018-06-05] MEDS ORDERED: LASIX40 MG PO (06:44)
[2018-06-05] MEDS ORDERED: VIBRAMYCIN 100100 MG PO (16:15)
[2018-06-05] MEDS ORDERED: PREDNISONE20 MG PO (16:17)
[2018-06-05 19:00] VITALS: BP 118/62
[2018-06-06 00:45] VITALS: BP 130/70
[2018-06-06 06:14] VITALS: BP 147/84
[2018-06-06 07:01] VITALS: BP 134/71
[2018-06-06 11:00] VITALS: BP 142/65
== END 2018-06-06 13:57 | DRG 177 ==
LOC: D.ER 10:16 → D.M3 13:57
PROVIDERS: Family Medicine
DX: J15.6 Pneumonia due to other Gram-negative bacteria (principal); J96.22 Acute and chronic respiratory failure with hypercapnia; J96.21 Acute and chronic respiratory failure with hypoxia; Z68.1 Body mass index [BMI] 19.9 or less, adult; J44.0 Chronic obstructive pulmonary disease with (acute) lower respiratory infection; J44.1 Chronic obstructive pulmonary disease with (acute) exacerbation; N39.0 Urinary tract infection, site not specified; J15.212 Pneumonia due to Methicillin resistant Staphylococcus aureus; R62.7 Adult failure to thrive; R63.0 Anorexia; D50.9 Iron deficiency anemia, unspecified; Z66 Do not resuscitate; Z87.891 Personal history of nicotine dependence; Z99.81 Dependence on supplemental oxygen; B96.20 Unspecified Escherichia coli [E. coli] as the cause of diseases classified elsewhere; I10 Essential (primary) hypertension; E86.9 Volume depletion, unspecified